=== PATIENT | male | born 1950 ===

== ENCOUNTER 2016-12-19 09:21 | Day surgery (SDC) | payer OTHER ==
[2016-12-19 10:55] VITALS: BMI 26.9
[2016-12-19 11:14] VITALS: RESP 16
[2016-12-19 14:07] VITALS: O2SAT 100
[2016-12-19 14:29] VITALS: PULSE 61
[2016-12-19 14:47] VITALS: BP 146/87; TEMP 97.8
== END 2016-12-19 14:40 | disposition home or self-care (01) ==
LOC: C.ENDO 09:21
PROVIDERS: ATTEND Internal Medicine Gastroenterology
DX: K62.89 Other specified diseases of anus and rectum (principal); R76.8 Other specified abnormal immunological findings in serum; K57.30 Diverticulosis of large intestine without perforation or abscess without bleeding; D12.5 Benign neoplasm of sigmoid colon; K64.8 Other hemorrhoids

== ENCOUNTER 2017-08-10 06:17 | Day surgery (SDC) | payer SELFPAY ==
[2017-08-10] MEDS ORDERED: Lidocaine 1%/Epinephrine 1:100000 30 ml vial IJ ONE (07:17)
[2017-08-10] MEDS: Bupivacaine HCl 0.25% PF (10 ml) Inj ONE ×2 (07:43→08:31)
[2017-08-10] MEDS: ceFAZolin IV 2 gm in Dextrose 2 GM/50 ML BAG IVPB ONE ×2 (07:44→08:20)
[2017-08-10] MEDS ORDERED: Midazolam 2 MG/2 ML VIAL ONE (08:16)
[2017-08-10] MEDS ORDERED: Lidocaine/Epinephrine 1% 1:100000 10 ML IJ ONE (08:29)
[2017-08-10] MEDS: Lidocaine/Epinephrine 1% 1:100000 10 ML IJ ONE ×2 (08:31→08:33)
[2017-08-10] MEDS ORDERED: Oxycodone/Acetaminophen 5/325 mg Tab PO PRN (09:06)
--- NOTE | 2017-08-10 09:06 | PCM.SURG1 ---
Surgeon's Initial Post Op Note - Surgeon's Notes Surgeon: Dr. Coyle Diamond Sawer: Franklyn PGY1 Type of Anesthesia: IV Sedation, Local Anesthesia Administered By: Dr. Schmitt Pre-Operative Diagnosis: Lipoma of Left arm Operative Findings: see operative report Post-Operative Diagnosis: Lipoma of Left arm Operation Performed: Removal of left arm lipoma Specimen/Specimens Removed: Lipoma of Left arm Estimated Blood Loss: EBL {In ML}: 10 Blood Products Given: N/A Drains Used: No Drains Post-Op Condition: Good Date of Surgery/Procedure: 08/10/17 Time of Surgery/Procedure: 08:30
[2017-08-10 11:16] VITALS: BP 132/80; PULSE 73; RESP 18; TEMP 97.6; O2SAT 100
--- NOTE | 2017-08-10 17:56 | OP ---
PROCEDURE DATE: 08/10/2017 PREOPERATIVE DIAGNOSIS: Lipoma of the left forearm. POSTOPERATIVE DIAGNOSIS: Lipoma of the left forearm. PROCEDURES DONE: 1. Excision of lipoma of the left forearm, 4 x 4 cm size. 2. Layered closure of the wound, 4 x 2 cm size. TYPE OF ANESTHESIA: Local anesthesia plus sedation. ESTIMATED BLOOD LOSS: Around 10 mL. DRAIN: None. PATHOLOGY: Lipoma of the left forearm was sent for the pathology. COMPLICATIONS: None. INTRAOPERATIVE FINDINGS: The patient had approximately 4 x 4-cm lipoma of the left forearm. DESCRIPTION OF PROCEDURE: On intraoperative steps, this 66-year-old male was diagnosed with a lipoma of the left forearm. Patient was consented for the excision of the lipoma, brought to the OR, placed supine on operative table. After induction of the anesthesia, the left forearm was prepped and draped in the usual sterile fashion. The local anesthesia was injected. After induction of the sedation, a transverse incision was made approximately 4 cm size after creating upper and lower flap with median and lateral dissection. The lipoma was completely excised from underlying fascia and it was sent to the table for the pathology. There was a proper hemostasis. Now, the redundant skin was excised and the skin flap was sutured to the underlying fascia in multiple sutures on the upper and lower flaps, subcutaneous with 2-0 Vicryl, skin with 4-0 Monocryl, and dry sterile dressing was applied. Patient tolerated the procedure well. Count of instrument and gauze was correct. There was no apparent complication. Chandler Coyle MD
== END 2017-08-10 11:11 | disposition home or self-care (01) ==
LOC: C.SDS 06:17
PROVIDERS: ATTEND Surgery Surgical Critical Care
DX: D17.22 Benign lipomatous neoplasm of skin and subcutaneous tissue of left arm (principal)
CPT/HCPCS: 11406; 88304; J0690; J2250; J3010